=== PATIENT | female | born 1970 | race Caucasian/White ===

== ENCOUNTER 2020-12-07 09:34 | Day surgery (SDC) | payer OTHER ==
[~2020-12-07] VITALS: Ht 152.4 cm; Wt 66.2 kg
[~2020-12-07 09:34] MED LIST: ASPIRIN 81 MG CHEWABLE TABLET PO ONE; DIAZEPAM 5 MG TABLET PO ONE; DiphenhydrAMINE HCL 50 MG CAPSULE PO ONE; SODIUM CHLORIDE 0.9% 1,000 ML IV ONE
[2020-12-07] MEDS ORDERED: SODIUM CHLORIDE 0.9% 1,000 ML ONE ×2 (09:51→14:41)
[2020-12-07] MEDS ORDERED: METO-558 PO (10:20)
[2020-12-07] MEDS ORDERED: OMEP20 PO (10:20)
[2020-12-07] MEDS ORDERED: FURO40 PO (10:20)
[2020-12-07] MEDS ORDERED: SPIR-37 PO (10:20)
[2020-12-07] MEDS ORDERED: ASPI-1444 PO (10:20)
[2020-12-07] MEDS ORDERED: LOSA25TA21 PO (10:20)
[2020-12-07] MEDS ORDERED: METH-387 PO (10:20)
[2020-12-07] MEDS ORDERED: DiphenhydrAMINE HCL 50 MG CAPSULE ONE (10:49)
[2020-12-07] MEDS ORDERED: ASPIRIN 81 MG CHEWABLE TABLET ONE (10:49)
[2020-12-07] MEDS ORDERED: DIAZEPAM 5 MG TABLET ONE (10:49)
[2020-12-07 11:19] LABS: GLUCOMETER DEV NAME(LOC) SDS.; GLUCOSE,POINT OF CARE 98 MG/DL (70-110)
[2020-12-07] MEDS ORDERED: IOHEXOL 300 MG/ML 50 ML VIAL ONE (12:31)
[2020-12-07] MEDS ORDERED: SODIUM BICARBONATE 50 MEQ/50 ML VIAL ONE (12:32)
[2020-12-07] MEDS ORDERED: IOHEXOL 300 MG/ML 150 ML VIAL ONE (12:32)
[2020-12-07] MEDS ORDERED: HEPARIN SODIUM 1000 UNITS/NS 1,000 ML ONE (12:32)
[2020-12-07] MEDS ORDERED: IOHEXOL 300 MG/ML 100 ML VIAL ONE (12:32)
[2020-12-07] MEDS ORDERED: LIDOCAINE/PF 1% 30 ML VIAL ONE (12:32)
[2020-12-07 12:43] VITALS: BP 150/94
[2020-12-07] MEDS ORDERED: MIDAZOLAM HCL 2 MG/2 ML VIAL ONE (12:51)
[2020-12-07] MEDS ORDERED: FentaNYL CITRATE PF 100 MCG/2 ML VIAL ONE (12:51)
[2020-12-07] MEDS ORDERED: HydrALAZINE HCL 20 MG/ML VIAL ONE (13:17)
[2020-12-07] MEDS ORDERED: HydrALAZINE HCL 20 MG/ML VIAL IVP ONE ×2 (13:30)
[2020-12-07] MEDS ORDERED: MIDAZOLAM HCL 2 MG/2 ML VIAL IVP ONE (13:30)
[2020-12-07] MEDS ORDERED: IOHEXOL 300 MG/ML 150 ML VIAL IARTER ONE (13:30)
[2020-12-07] MEDS ORDERED: FentaNYL CITRATE PF 100 MCG/2 ML VIAL IVP ONE (13:30)
[2020-12-07] MEDS ORDERED: LIDOCAINE 1% 30 ML/SOD BICARB 8.4% 4 ML SQ ONE (13:30)
[2020-12-07] MEDS ORDERED: HEPARIN SODIUM 1000 UNITS/NS 1,000 ML IARTER ONE (13:30)
[2020-12-07 13:53] VITALS: BP 143/69
[2020-12-07] MEDS ORDERED: ACETAMINOPHEN 500 MG TABLET PO ONE (17:00)
== END 2020-12-07 17:40 | disposition home or self-care (01) ==
LOC: CATHLAB 09:34
PROVIDERS: ATTEND Internal Medicine Interventional Cardiology
DX: R94.39 Abnormal result of other cardiovascular function study (principal); I48.91 Unspecified atrial fibrillation; I11.0 Hypertensive heart disease with heart failure; I50.9 Heart failure, unspecified; I42.9 Cardiomyopathy, unspecified; Z79.899 Other long term (current) drug therapy; Z98.890 Other specified postprocedural states
CPT/HCPCS: 82962; 93458; C1760; J0360; J1644; J2250; J3010; J3490 ×2; J7030; Q9967; 93005